=== PATIENT | male | born 1970 | race Caucasian/White ===

== ENCOUNTER → 2021-03-04 19:05 | Outpatient (CLI) | payer BC, SELFPAY ==
--- NOTE | 2021-03-06 15:03 | PC.NURSE ---
pt. notified of positive test result.
== END ==
PROVIDERS: Visit Provider Nurse Practitioner Family
DX: U07.1 COVID-19 (principal)
CPT/HCPCS: C9803; U0003; U0005

== ENCOUNTER 2021-12-10 13:11 | Emergency (ER) | payer BC, SELFPAY ==
--- NOTE | 2021-12-10 13:50 | PC.NURSE ---
pt sitting up on the side of the bed, pt reports he is in less pain than when trying to move it. Pt over to prop leg up he declined will continue to monitor
--- NOTE | 2021-12-10 13:53 | HMH.EDGENADL ---
Discharge Plan Disposition Patient Disposition: Home, Self-Care Condition: Good Prescriptions Prescriptions: New hydrocodone-acetaminophen 5-325 mg tablet 1 tab PO Q6H PRN (Reason: pain) Qty: 10 0RF No Action benzonatate 100 mg capsule 100 mg PO TID PRN (Reason: cough) Qty: 20 0RF prednisone 20 mg tablet 20 mg PO BID Qty: 10 0RF Rx Instructions: administer with food or milk cyclobenzaprine 10 mg tablet 10 mg PO TID PRN (Reason: muscle spasm) Qty: 60 0RF aspirin 81 mg tablet,delayed release (DR/EC) 81 mg PO DAILY omega-3 fatty acids [Fish Oil Concentrate] 1,000 mg capsule 1,000 mg PO DAILY multivitamin Tablet 1 tab PO DAILY diclofenac-misoprostol 75-200 mg-mcg tablet,IR,delayed rel,biphasic 1 tab PO BID Qty: 180 3RF omeprazole 20 mg capsule,delayed release(DR/EC) 20 mg PO DAILY Qty: 90 3RF testosterone 20.25 mg/1.25 gram (1.62 %) gel in metered-dose pump 40.5 mg TOPICAL DAILY Qty: 75 5RF albuterol sulfate [Ventolin HFA] 90 mcg/actuation HFA aerosol inhaler 1 puff INHALATION Q6H Qty: 6.7 0RF Rx Instructions: administer with spacer simvastatin 40 mg tablet 40 mg PO DAILY lisinopril 10 mg tablet 10 mg PO DAILY Referrals Follow up/Referrals: Victor Hugo Funes MD [Primary Care Provider] - See instructions Shane Moon JR, MD [Physician] - See instructions Activity Restrictions/Add. Instructions Additional Instructions/Restrictions: remain non-weight bearing until cleared by orthopedic surgery Clinical Impressions Clinical Impression: Left knee sprain Instructions Patient Instructions: How to Use Crutches, DI for Knee Sprain, How to Use a Knee Immobilizer, Hydrocodone Print Language Print Language: Zambian Discharge ED Provider: Sebastian Lara Adult HPI General Chief complaint: Extremity Injury, Lower Stated complaint: left knee pain Time Seen by Provider: 12/10/21 13:53 History of Present Illness HPI narrative: 51-year-old male, history of arthritis both knees, states for the past week he had been experiencing some left knee discomfort as well as mild swelling. 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 He also reports moderate swelling of the knee and warmth, no overlying erythema, no fevers. He denies any treatment prior to this visit, denies any numbness, tingling or other symptoms at this time Related Data Home Medications Medication Instructions Recorded Confirmed aspirin 81 mg tablet,delayed 81 mg PO DAILY heart 01/22/21 12/10/21 release multivitamin 1 tab PO DAILY 01/22/21 10/19/21 omega-3 fatty acids 1,000 mg 1,000 mg PO DAILY 01/22/21 10/19/21 capsule (Fish Oil Concentrate) lisinopril 10 mg tablet 10 mg PO DAILY Hypertension 12/10/21 12/10/21 simvastatin 40 mg tablet 40 mg PO DAILY Cholesterol 12/10/21 12/10/21 Previous Rx's Medication Instructions Recorded diclofenac 75 mg-misoprostol 200 1 tab PO BID #180 tabs 01/22/21 mcg tablet,immediate,delayed release omeprazole 20 mg capsule,delayed 20 mg PO DAILY #90 caps 01/22/21 release albuterol sulfate 90 mcg/actuation 1 puff inhalation Q6H #6.7 grams 03/04/21 aerosol inhaler (Ventolin HFA) benzonatate 100 mg capsule 100 mg PO TID PRN cough #20 caps 05/01/21 cyclobenzaprine 10 mg tablet 10 mg PO TID PRN muscle spasm #60 05/01/21 tabs prednisone 20 mg tablet 20 mg PO BID #10 tabs 05/01/21 testosterone 20.25 mg/1.25 gram 40.5 mg topical DAILY #75 grams 10/19/21 (1.62 %) transdermal gel pump hydrocodone 5 mg-acetaminophen 325 1 tab PO Q6H PRN pain #10 tabs 12/10/21 mg tablet Allergies Allergy/AdvReac Type Severity Reaction Status Date / Time Penicillins [PENICILLINS] Allergy Intermediate Verified 10/19/21 13:40 bee pollen Allergy Mild Verified 10/19/21 13:40 [facility] Medical History
[2021-12-10 13:54] VITALS: BP 143/113; PULSE 94; RESP 18; TEMP 36.8; O2SAT 95; BMI 34.3
--- NOTE | 2021-12-10 13:57 | PC.NURSE ---
LONDON ESCOBAR at
[2021-12-10 14:00] VITALS: BP 141/93; PULSE 91; RESP 16; O2SAT 96
--- NOTE | 2021-12-10 14:08 | XR_ITS ---
PROCEDURE INFORMATION: Exam: XR Left Knee Exam date and time: 12/10/2021 2:37 PM Age: 51 years old Clinical indication: Pain; Knee; Left; Additional info: Pain, swelling TECHNIQUE: Imaging protocol: Radiologic exam of the Left knee. Views: 3 views. COMPARISON: No relevant prior studies available. FINDINGS: Bones/joints: There is no evidence of acute fracture.There is no evidence of malalignment or dislocation. Soft tissues: Normal. IMPRESSION: There is no evidence of acute fracture.There is no evidence of malalignment or dislocation.
--- NOTE | 2021-12-10 14:16 | PC.NURSE ---
rad notified of xray order, but asked them to wait a few minutes so that pain medication could start to work for pt.
--- NOTE | 2021-12-10 14:49 | PC.NURSE ---
pt return from xray
--- NOTE | 2021-12-10 16:11 | PC.NURSE ---
put immoblizer on pt pt did not tolerate well so the immoblizer is not on well
[2021-12-10 16:32] VITALS: BP 123/74; PULSE 78; RESP 16; TEMP 36.6; O2SAT 98
== END 2021-12-10 16:34 | disposition home or self-care (01) ==
PROVIDERS: Emergency Provider Emergency Medicine; PCP Nurse Practitioner Family
DX: S83.92XA Sprain of unspecified site of left knee, initial encounter (principal); Y93.9 Activity, unspecified; Y92.79 Other farm location as the place of occurrence of the external cause; M17.0 Bilateral primary osteoarthritis of knee; Z79.82 Long term (current) use of aspirin; Z79.899 Other long term (current) drug therapy; Z88.0 Allergy status to penicillin
CPT/HCPCS: 73562; 96372; 99283

== ENCOUNTER → 2021-12-26 08:25 | Outpatient (CLI) | payer BC, SELFPAY ==
--- NOTE | 2021-12-26 08:25 | MR_ITS ---
FINAL REPORT CLINICAL HISTORY: LEFT KNEE PAIN AND SWELLING X2 WEEKS. FINDINGS: Multi planar MR imaging was performed of the right knee. The anterior and posterior cruciate ligaments are intact. The quadriceps and patellar tendons are intact. There is a large linear tear in the posterior horn of the medial meniscus. Finding is well seen on images 7 and 8 of series 4. The lateral meniscus is intact. There is a small to moderate joint effusion. The medial and lateral collateral ligaments appear intact. The medial and lateral retinacula appear intact. There is no evidence of bone marrow edema or osteochondral defect. No evidence of soft tissue inflammatory reaction. IMPRESSION: Large linear tear posterior horn medial meniscus. Reviewed, Interpreted and Dictated by Benny Drew MD Transcribed by Krista Curtis Authenticated and [facility]
== END ==
LOC: RAD 08:25
PROVIDERS: PCP Nurse Practitioner Family; Visit Provider Orthopaedic Surgery
DX: S83.92XA Sprain of unspecified site of left knee, initial encounter (principal)
CPT/HCPCS: 73721

== ENCOUNTER → 2022-01-08 09:27 | Outpatient (CLI) | payer BC, SELFPAY ==
--- NOTE | 2022-01-08 09:35 | ECG_ITS ---
APPROVED REPORT Exam: Resting ECG HR:93 bpm ECG Measurements Heart Rate 93 AXES OH 159 P 46 QRSd 100 QRS 5 QT 341 T 32 QTc 392 Conclusion SINUS RHYTHM NORMAL ECG UNCONFIRMED REPORT Electronically signed by : Shon Burch MD 01/08/2022 19:58:35
[2022-01-08 09:40] LABS: Coronavirus 19, PCR Not Detected (NotDetected); Influenza A, PCR Not Detected (NotDetected); Influenza B, PCR Not Detected (NotDetected)
--- NOTE | 2022-01-08 09:47 | XR_ITS ---
FINAL REPORT TECHNIQUE: Chest PA & Lateral CLINICAL HISTORY: preop COMPARISON: June 26, 2019 FINDINGS: 2 views of the chest were performed. The heart size is normal. The mediastinum is within normal limits. There is no acute cardiopulmonary process. There are no pleural effusions. There is no pneumothorax. The bony thorax appears intact. IMPRESSION: No acute cardiopulmonary process. Reviewed, Interpreted and Dictated by Borderick Camargo III, MD Transcribed by Seth Evans Authenticated and [facility]
[2022-01-08 10:34] LABS: Basophils # 0.1 K/mm3 (0-0.2); Basophils % 1.5 % (0.1-2.0); Eosinophils # 0.1 K/mm3 (0.0-0.4); Eosinophils % 1.7 % (0.1-12.0); Hematocrit 47.8 % (42.0-52.0); Hemoglobin 15.8 g/dL (14.1-18.0); Lymphocytes # 2.4 K/mm3 (0.7-4.5); Lymphocytes % 37.1 % (10-50); Mean Corpuscular HGB Conc 33.1 g/dL (31.8-35.4); Mean Corpuscular Hemoglobin 30.1 pg (27.0-31.2); Mean Corpuscular Volume 90.8 fl (80-94); Mean Platelet Volume 7.3 fl (7.4-10.4); Monocytes # 0.5 K/mm3 (0.1-1.0); Monocytes % 7.9 % (1.7-9.3); Neutrophils # 3.3 K/mm3 (1.8-7.8); Neutrophils % 51.7 % (37.0-80.0); Platelet Count 255 K/mm3 (142-424); Red Blood Count 5.26 M/mm3 (4.60-6.20); Red Cell Distribution Width 13.5 % (11.5-17.5); White Blood Count 6.4 K/mm3 (4.8-10.8)
[2022-01-08 13:01] LABS: Chloride 102 mmol/L (98-107); Potassium 4.2 mmoL/L (3.5-5.1); Sodium 140 mmol/L (136-145)
[2022-01-08 13:04] LABS: Alanine Aminotransferase 37 U/L (12-78); Albumin Level 4.6 g/dl (3.5-5.0); Albumin/Globulin Ratio 1.7 (1.1-1.8); Alkaline Phosphatase 74 U/L (38-126); Anion Gap 16.2 mEq/L (5-15); Aspartate Amino Transferase 35 U/L (17-59); Bilirubin,Total 0.6 mg/dl (0.2-1.3); Blood Urea Nitrogen 11 mg/dl (9-20); Calcium 9.3 mg/dl (8.4-10.2); Carbon Dioxide 26 mmol/L (22.0-30.0); Estimated Glomerular Filt Rate 71 ml/min (>60); GFR (African American) 85 ML/MIN (>60); Globulin 2.7 g/dL (1.3-3.2); Glucose 97 mg/dl (74-100); Total Protein,Serum 7.3 g/dl (6.3-8.2)
== END ==
LOC: LAB 09:28
PROVIDERS: PCP Family Medicine; Visit Provider Orthopaedic Surgery
DX: Z01.818 Encounter for other preprocedural examination (principal); U07.1 COVID-19; S83.232A Complex tear of medial meniscus, current injury, left knee, initial encounter
CPT/HCPCS: 36415; 71046; 80053; 85025; 93005; C9803; U0003; U0005

== ENCOUNTER 2022-01-17 06:04 | Day surgery (SDC) | payer BC, SELFPAY ==
[2022-01-14 14:34] VITALS: BMI 34.3
[2022-01-17] VITALS (10 sets, daily range): BP systolic 101–138; BP diastolic 70–102; PULSE 86–102; RESP 12–19; TEMP 36.5–38; O2SAT 93–99
--- NOTE | 2022-01-17 07:55 | P.PN_ITS ---
[facility] Medical History (Updated 01/17/22 @ 06:19 by Vitor Franks RN) Arthritis Cataract History of cataract History of COVID-19 History of gastroesophageal reflux (GERD) Hyperlipidemia Hypertension Surgical History History of tonsillectomy Family History Father Intestinal cancer Family history of hypertension Brother Stomach cancer Grandfather Family history of acute heart failure Social History Smoking Status: Current some day smoker alcohol intake: current substance use type: denies use current occupational status: employed Travel in the last 8 weeks: None [facility] Anesthesia Checklist Patient Identification Patient Identification: Verbal (Name & ) Structural Data Admitted From: Home Planned Operative Procedure/s: l knee arthroscopy Consent for Planned Operative Procedure(s) Verified: Yes Additional verifications Anesthesia Reactions: No Hx Blood Transfusions: No Blood Transfusion Reaction: No Airway Assessment C-Spine Mobility Assessed: Yes TMJ Mobility Assessed: Yes Dentition: Good Dentition Neurological Assessment Level of Consciousness: Awake, Alert and Appropriate Anesthesia Plan Anesthesia Risk discussed: Yes Anesthesia Plan: Verified ASA Class: III Anesthesia Type: General
--- NOTE | 2022-01-17 08:27 | EXP.ANES.I ---
[facility] Anesthesia Record Part I Anesthesia Record I Intake, IV Amount: 1,200 Estimated blood loss (mL): 0 Urine output (mL): 0 Blood Pressure: 124/102 SaO2: 95 Pulse Rate: 100 Respiratory Rate: 12 Temperature: 98.1 F Patient is:: Awake and Stable Stable to PACU at:: 08:25
--- NOTE | 2022-01-17 08:29 | EXP.OP.NOTE ---
Date of procedure: 01/17/22 Pre-op Diagnosis:: Left knee medial meniscus tear Post-op Diagnosis:: Same Procedure performed:: Left knee arthroscopy with partial medial meniscectomy Surgeon:: Christiano Wilkes DO [employer] OPERATOR:: Ramin Cao Anesthesia: GETA Estimated blood loss (mL): 0 Operative findings:: See dictation Operative note:: Patient was identified preoperatively left knee was marked with a yes and my initials. Taken operative suite placed upon operating bed general anesthesia was administered and airway was secured. Left lower extremities then prepped draped normal sterile fashion. Once prepped and draped final operative timeout performed to identify proper patient procedure and extremity. Everyone involved in the case agreed. There were no counter indications to beginning. He did receive preoperative antibiotics clindamycin. Skin F was used incise standard anterior lateral portal blunt with trocar was placed in the patellofemoral joint. This was exchanged with a camera. I spoke directly into the medial joint line where anterior medial portal was made under direct visualization with a 18-gauge spinal needle. This is exchanged with a probe. There was some mild fraying of the cartilage of the medial femoral condyle with no full-thickness lesions. There was a macerated complex tear the posterior horn of the medial meniscus. Using a combination of straight biter and sucker shaver partial medial meniscectomy was performed back to stable rim. Attention was then brought to the intercondylar notch the ACL was seen and intact attention was then brought to the lateral joint line. Lateral meniscus was intact lateral cartilage was intact. I swept into the medial and lateral gutters. No further pathology was seen. Attention was brought into the patellofemoral joint or patella did track midline within the trochlea. Mild softening of the trochlear cartilage. Camera was removed. Joint was drained. Local anesthesia with quarter percent Marcaine inserted into the portal sites. Sterile dressing placed. Tourniquet deflated. Patient waken anesthesia taken recovery in stable condition. Tourniquet time (min): 18 Condition: stable Disposition: PACU Complications:: None apparent
--- NOTE | 2022-01-17 08:35 | PC.NURSE ---
Dr Wilkes at bedside 0805
--- NOTE | 2022-01-17 08:37 | PC.NURSE ---
Dr Bobby at bedside
--- NOTE | 2022-01-18 08:30 | EXP.ANES.II ---
[facility] Anesthesia Record Part II Anesthesia Record Part II Discharge Time: 08:55 Destination: Surgical Day Care (OP Surgery) PACU nurse assessment reviewed?: Yes Patient Condition:: Good Anesthesia Complications:: None Swallowing reflex intact?: Yes Cyanosis?: No Blood Pressure: 112/76 Pulse Rate: 87 Temperature: 98 F Mental Status: Alert & Oriented Pain level:: 0 Nausea and/or vomitting:: None Intake, IV Amount: 0
[2022-01-18 08:31] VITALS: BP 112/76; PULSE 87; TEMP 36.6
== END 2022-01-17 09:27 | disposition home or self-care (01) ==
PROVIDERS: PCP Family Medicine; Visit Provider Orthopaedic Surgery
PROC: (CPT 29870; principal; 2022-01-17 07:30)
DX: S83.232A Complex tear of medial meniscus, current injury, left knee, initial encounter (principal); Z79.899 Other long term (current) drug therapy; F17.210 Nicotine dependence, cigarettes, uncomplicated
CPT/HCPCS: 29881; 96374; J2405

== ENCOUNTER 2024-01-16 10:03 | Day surgery (SDC) | payer BC, SELFPAY ==
[2024-01-14 14:28] VITALS: BMI 36.0
[2024-01-16 10:33] VITALS: BP 137/84; PULSE 71; RESP 18; O2SAT 97
[2024-01-16] MEDS: LACTATED RINGERS 1000ML 1,000 ML 25 ML IV (10:39)
--- NOTE | 2024-01-16 11:26 | HMH.SCOPE ---
Procedure: Date: 01/16/24 Patient Date of :: 1970 Procedure Performed:: Esophagogastroduodenoscopy with biopsies Total colonoscopy to terminal ileum with biopsies . Indications:: Patient is a 53-year-old male from [place]. His sister is Josee Payan. He was scheduled for upper endoscopy and colonoscopy essentially for screening purposes. He has never had prior colonoscopy although he did have Cologuard 2 years ago which was negative. He states that his younger brother had of stomach cancer . Exact details are unknown but he did have to undergo testing for H. pylori and he was negative. . Performing Provider:: Broderick Ledesma MD Referring Provider:: Josee Payan . Sedation:: MAC sedation . Procedure:: Patient history was obtained and appropriate physical examination was performed. Patient's medications and allergies were reviewed. Informed consent was obtained after explaining the benefits, alternatives, and risks of the procedure including, but not limited to, bleeding, perforation, missed lesions, and adverse reaction to anesthesia medications. Patient was transported to endoscopy procedure room. Patient was connected to monitoring devices. Throughout the procedure the patient's blood pressure, pulse, and oxygen saturations were monitored continuously. Patient identification and planned procedure were verified by the staff. Patient was positioned in lateral decubitus position. Attention was first turned to upper endoscopy. Olympus endoscope was inserted via the oropharynx. Esophagus was cannulated. 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 This was a long segment between approximately 32 cm and 38 cm. Gastroesophageal junction was encountered at 38 cm. Stomach was cannulated and insufflated. Retroflexion revealed tiny 1 or 2 cm hiatal hernia. There is some diffuse gastropathy. Pylorus was traversed. Duodenum appeared normal. Endoscope was withdrawn into the stomach and gastric antral mucosal biopsy was obtained. Biopsy was obtained at the gastroesophageal junction at 38 cm. Endoscope was withdrawn several centimeters and sequential biopsies were obtained at various levels of the Perez's esophagus. Biopsies were obtained at 35 cm, 33 cm, 31 cm. Distal esophageal biopsy just proximal to the area of apparent Perez's esophagus was biopsied as well. Endoscope was then withdrawn. Next attention was turned to colonoscopy. Digital anorectal exam was performed. Variable stiffness Olympus colonoscope was inserted and advanced under direct visualization to the cecum. Adequacy of the colonic preparation was noted. There was some particulate opaque liquid stool throughout the colon which was mostly cleared with suctioning. However there was also undigested vegetable matter which was unable to be fully cleared. The colonoscope was advanced a short distance into the terminal ileum. In the ascending colon essentially across from the ileocecal valve there was a small exudative ulcerated lesion. Multiple biopsies were obtained and these were sent as biopsy of ulcerated ascending lesion. The colonoscope was then slowly withdrawn while carefully examining the color, texture, anatomy, and integrity of the mucosoa circumferentially. Within the rectum retroflexion was performed. Colonoscope was then withdrawn. . Findings:: Findings consistent with appreciable circumferential Perez's esophagus between 32 cm from 38 cm, multiple biopsies obtained at specific levels Gastroesophageal junction at 38 cm Tiny hiatal hernia Nonerosive gastropathy . Opaque particulate stool and undigested vegetable matter in the colon Small exudative ulcerated lesion in ascending colon contralateral to the ileocecal valve, biopsies obtained . Recommendations:: Definitive treatment pending pathology. Could require intervention for possible Perez's. Follow-up colonoscopy pending results of biopsies of ulcerated lesion. Complications:: None immediately apparent Estimated blood obtained (mL): 3 Colonoscopy Component Colonoscopy Component Was a colonoscopy performed during today's procedure?: Yes Recommended follow up colonoscopy of at least 10 years?: No If no, follow up colonoscopy recommended in ___ years?: See above Reason for not recommending >/= 10 yr follow-up interval?: See above
[2024-01-16 12:12] VITALS: O2SAT 100
[2024-01-16 12:51] VITALS: BP 146/77; PULSE 89; RESP 16; TEMP 36.4; O2SAT 96
[2024-01-16 13:01] VITALS: BP 145/97; PULSE 75; RESP 16; TEMP 36.4; O2SAT 96
--- NOTE | 2024-01-16 13:03 | EXP.ANES.CKL ---
[facility] Disclaimer: The information contained in this section may have been updated after the patient was seen, as this information can be updated by other users. Medical History Arthritis Cataract History of COVID-19 Arthritis History of gastroesophageal reflux (GERD) History of cataract Hyperlipidemia Hypertension Surgical History History of cataract surgery History of arthroscopic knee surgery History of tonsillectomy Family History Father Family history of hypertension Intestinal cancer Brother Stomach cancer Grandfather Family history of acute heart failure Other Diabetes Social History Smoking Status: Never smoker alcohol intake: current alcohol intake frequency: 3 or more drinks per day substance use type: denies use current occupational status: employed Travel in the last 8 weeks: None caffeine: Yes [facility] Anesthesia Checklist Patient Identification Patient Identification: Arm Band and Family Structural Data Admitted From: Home Planned Operative Procedure/s: EGD and Colooscopy Consent for Planned Operative Procedure(s) Verified: Yes Verified Documents: Surgical Consent and History and Physical NPO Status Verified Time NPO: 00:00 Additional verifications Patient : No Anesthesia Reactions: No Hx Blood Transfusions: No Blood Transfusion Reaction: No Cephalosporin Allergy: No Previous Colonoscopy: No Airway Assessment Mallampati Score:: Class II C-Spine Mobility Assessed: Yes TMJ Mobility Assessed: Yes Dentition: Good Dentition Neurological Assessment Level of Consciousness: Awake, Alert, Appropriate and Follows Commands Hx Seizures: Yes Numbness or tingling in extremities: No Anesthesia Plan Anesthesia Risk discussed: Yes ASA Class: II Anesthesia Type: MAC
[2024-01-16 13:11] VITALS: BP 145/97; PULSE 75; RESP 16; TEMP 36.4; O2SAT 96
[2024-01-16 13:21] VITALS: BP 133/88; PULSE 74; RESP 16; TEMP 36.4
== END 2024-01-16 13:22 | disposition home or self-care (01) ==
PROVIDERS: PCP Nurse Practitioner Family; Visit Provider Surgery
PROC: 0DJ08ZZ Inspection of Upper Intestinal Tract, Via Natural or Artificial Opening Endoscopic (ICD-10-PCS; CPT 43235; principal; 2024-01-16 11:30)
DX: Z12.11 Encounter for screening for malignant neoplasm of colon (principal); Z80.0 Family history of malignant neoplasm of digestive organs; K22.70 Barrett's esophagus without dysplasia; K44.9 Diaphragmatic hernia without obstruction or gangrene; K31.9 Disease of stomach and duodenum, unspecified; K63.3 Ulcer of intestine
CPT/HCPCS: 43239; 45380; J2704; J7120